=== PATIENT | male | born 1945 | race Hispanic/Latino ===

== ENCOUNTER → 2023-09-14 | Outpatient (CLI) | payer OTHER ==
[~2023-09-14] MED LIST: CARV3.12 PO; CHOL200013 PO; DONE5TAB33 PO; DOXY50TA PO; DULO30CA52 PO; EMPA25TA PO; GABA-529 PO; KCIT5T PO; MELO-108 PO; METF-526 PO; OLME-9 PO; OLME40TA18 PO; OMEP-420 PO; PRED5DRO25 OU; SIMV-43 PO; SUCR1TAB2 PO; TIMO1DRO9 OP
[2023-09-14 13:30] LABS: BASOPHILS # (AUTO) 0.04 K/uL (0.00-0.20); BASOPHILS % (AUTO) 0.7 % (0.0-5.0); EOSINOPHILS # (AUTO) 0.08 K/uL (0.00-0.70); EOSINOPHILS % (AUTO) 1.5 % (0.0-8.0); IMMATURE GRANULOCYTE ABSOLUTE 0.02 K/uL (0-1); LYMPHOCYTES # (AUTO) 1.3 K/uL (1.0-4.8); LYMPHOCYTES % (AUTO) 24.3 % (21.0-51.0); MEAN CORPUSCULAR HEMOGLOBIN 31.7 pg (27.0-33.0); MEAN CORPUSCULAR HGB CONC 33.8 g/dL (32.0-36.0); MEAN CORPUSCULAR VOLUME 93.9 fL (79-99); MONOCYTES # (AUTO) 0.5 K/uL (0.1-1.0); MONOCYTES % (AUTO) 8.9 % (3.0-13.0); NEUTROPHILS # (AUTO) 3.5 K/uL (1.8-7.7); NEUTROPHILS % (AUTO) 64.2 % (40.0-77.0); PLATELET COUNT (AUTO) 126 K/uL (130-400); RED BLOOD CELL COUNT(AUTO) 5.11 MIL/uL (4.50-6.20); RED CELL DISTRIBUTION WIDTH 13.5 % (11.0-15.5); WHITE BLOOD COUNT (AUTO) 5.5 K/uL (4.8-10.8)
[2023-09-14 13:34] LABS: INR 0.99 (0.85-1.15); PROTHROMBIN TIME 11.5 SEC (9.6-11.6)
[2023-09-14 13:35] LABS: PARTIAL THROMBOPLASTIN TIME 29.9 SEC (26.3-35.5)
[2023-09-14 13:41] LABS: ALBUMIN 3.7 g/dL (3.5-5.0); BILIRUBIN,TOTAL 0.7 mg/dL (0.2-1.0); CREATININE 1.1 mg/dL (0.5-1.5); POTASSIUM 3.7 mmol/L (3.5-5.1); TOTAL PROTEIN, SERUM 7.4 g/dL (6.0-8.3)
== END | disposition home or self-care (01) ==
LOC: LAB 12:37
PROVIDERS: ATTEND Internal Medicine Gastroenterology
DX: K74.60 Unspecified cirrhosis of liver (principal)
CPT/HCPCS: 36415; 80053; 82105; 82140; 85025; 85610; 85730

== ENCOUNTER 2023-09-16 10:37 | Day surgery (SDC) | payer OTHER ==
[~2023-09-16] VITALS: Ht 160 cm; Wt 78.5 kg
[2023-09-16] VITALS (11 sets, daily range): BP systolic 120–146; BP diastolic 60–79; PULSE 71–80; RESP 14–18
[~2023-09-16 10:37] MED LIST changes: +0.9%NACL 1000ML 1,000 ML IV ONE; -OLME-9 PO
[2023-09-16] MEDS ORDERED: PROPOFOL 10 MG/ML 20ML VIAL IV ONE (14:15)
[2023-09-16] MEDS ORDERED: LIDOCAINE HCL 1% 20 ML VIAL ONE (14:15)
[2023-09-16] MEDS ORDERED: OLME-9 PO (14:17)
== END 2023-09-16 16:00 | disposition home or self-care (01) ==
LOC: ENDO 10:37 → DAH 10:37 → ENDO 16:00
PROVIDERS: ATTEND Internal Medicine Gastroenterology
DX: K74.69 Other cirrhosis of liver (principal); K76.6 Portal hypertension; I85.10 Secondary esophageal varices without bleeding; D69.59 Other secondary thrombocytopenia; K31.89 Other diseases of stomach and duodenum; K29.00 Acute gastritis without bleeding; D69.6 Thrombocytopenia, unspecified; E11.22 Type 2 diabetes mellitus with diabetic chronic kidney disease; I12.9 Hypertensive chronic kidney disease with stage 1 through stage 4 chronic kidney disease, or unspecified chronic kidney disease; N18.9 Chronic kidney disease, unspecified; M19.90 Unspecified osteoarthritis, unspecified site; G47.30 Sleep apnea, unspecified; E78.5 Hyperlipidemia, unspecified; Z90.89 Acquired absence of other organs; Z98.890 Other specified postprocedural states; Z86.010 Personal history of colon polyps; Z86.16 Personal history of COVID-19; Z82.49 Family history of ischemic heart disease and other diseases of the circulatory system; Z83.3 Family history of diabetes mellitus; Z83.438 Family history of other disorder of lipoprotein metabolism and other lipidemia; Z80.0 Family history of malignant neoplasm of digestive organs; Z80.8 Family history of malignant neoplasm of other organs or systems
CPT/HCPCS: 82948 ×2; 43235; J7030 ×2; J2704; A4620; A4215 ×2; A4223; A7002; A4222; A4221; A4663; A4606; J3490

== ENCOUNTER 2024-04-18 07:56 | Day surgery (SDC) | payer OTHER ==
[~2024-04-18] VITALS: Ht 177.8 cm; Wt 108.9 kg
[2024-04-18] VITALS (15 sets, daily range): BP systolic 96–126; BP diastolic 57–72; PULSE 61–79; RESP 13–18
[~2024-04-18 07:56] MED LIST changes: -0.9%NACL 1000ML 1,000 ML IV ONE; +OLME-30 PO; -OLME40TA18 PO
[2024-04-18] MEDS ORDERED: MIRA25TA5 PO (12:21)
[2024-04-18] MEDS ORDERED: TAMS-1 PO (12:21)
[2024-04-18] MEDS ORDERED: FAMO-136 PO (12:21)
[2024-04-18] MEDS ORDERED: LEVO250T75 PO (12:21)
[2024-04-18] MEDS: 0.9%NACL 1000ML 1,000 ML IV ONE (13:08)
[2024-04-18] MEDS ORDERED: LIDOCAINE PF 100MG/5ML (2%) SYRINGE 5ML ONE (13:50)
[2024-04-18] MEDS ORDERED: PROPOFOL 10 MG/ML 20ML VIAL IV ONE (13:50)
== END 2024-04-18 15:15 | disposition home or self-care (01) ==
LOC: DAH 07:56 → ENDO 07:56
PROVIDERS: ATTEND Internal Medicine Gastroenterology
DX: K74.69 Other cirrhosis of liver (principal); K29.50 Unspecified chronic gastritis without bleeding; K29.00 Acute gastritis without bleeding; K76.6 Portal hypertension; K31.89 Other diseases of stomach and duodenum; D69.59 Other secondary thrombocytopenia; I12.9 Hypertensive chronic kidney disease with stage 1 through stage 4 chronic kidney disease, or unspecified chronic kidney disease; E11.22 Type 2 diabetes mellitus with diabetic chronic kidney disease; N18.9 Chronic kidney disease, unspecified; I35.0 Nonrheumatic aortic (valve) stenosis; G47.30 Sleep apnea, unspecified; K76.0 Fatty (change of) liver, not elsewhere classified; Z79.84 Long term (current) use of oral hypoglycemic drugs; Z79.899 Other long term (current) drug therapy; Z82.5 Family history of asthma and other chronic lower respiratory diseases; Z83.3 Family history of diabetes mellitus; Z82.3 Family history of stroke; Z82.49 Family history of ischemic heart disease and other diseases of the circulatory system; Z98.890 Other specified postprocedural states
CPT/HCPCS: 43239; 82948; 88305; 88312; J7030; J2001; J2704; A4620; A4215; A4657; J3490